=== PATIENT | female | born 1970 | race Caucasian/White ===

== ENCOUNTER → 2021-07-04 | Outpatient (CLI) | payer BC ==
--- NOTE | 2021-07-05 20:28 | XR ---
EXAMINATION TYPE: XR hand limited bilateral DATE OF EXAM: 07/04/2021 COMPARISON: None HISTORY: Pain TECHNIQUE: Bilateral hands 2 views each FINDINGS: No acute fractures or dislocations are evident. Joint spaces are preserved. Soft tissues ar e normal. IMPRESSION: 1. Normal bilateral hands
--- NOTE | 2021-07-05 20:29 | XR ---
EXAMINATION TYPE: XR knee limited bilateral DATE OF EXAM: 07/04/2021 COMPARISON: None HISTORY: Pain TECHNIQUE: Two-view bilateral knees each FINDINGS: Joint spaces are preserved. No joint effusion is evident. Patellofemoral joint spaces are p reserved. No acute fractures are evident. IMPRESSION: 1. Normal two-view bilateral knees
== END | disposition home or self-care (01) ==
LOC: RADXRMAIN 10:10
PROVIDERS: ATTEND Internal Medicine
DX: M79.642 Pain in left hand (principal); M79.641 Pain in right hand; M25.569 Pain in unspecified knee

== ENCOUNTER → 2021-07-04 | Outpatient (CLI) | payer BC ==
[2021-07-04 15:52] LABS: HCT 41.1 % (37.2-46.3); HGB 12.3 g/dL (12.0-15.0); MCH 21.4 pg (27.0-32.0); MCHC 29.9 g/dL (32.0-37.0); MCV 71.5 fL (80.0-97.0); Mean Platelet Volume 11.3 fL (9.5-12.2); NRBC Per 100 WBC 0 /100 WBCS (0.0-0.0); Platelet Count 351 X 10*3/uL (140-440); RBC 5.75 X 10*6/uL (4.10-5.20); RDW 16.1 % (11.5-14.5); WBC 13.26 X 10*3/uL (4.50-10.00)
== END | disposition home or self-care (01) ==
LOC: LABWHC1 09:36
PROVIDERS: ATTEND Internal Medicine
DX: R60.0 Localized edema (principal); R68.89 Other general symptoms and signs
CPT/HCPCS: 36415; 82672; 84144; 85027